=== PATIENT | female | born 1985 | race Caucasian/White ===

== ENCOUNTER 2018-06-09 16:58 | Outpatient (CLI) | payer BC ==
--- NOTE | 2018-06-10 14:00 | Ultrasound Report ---
Reason: INFERTILITY INVESTIGATION AND TESTING Procedure Date: 06/09/2018 Accession Number: [id number] / [id number] Procedure: US - Pelvic w/Transvaginal CPT Code: FULL RESULT: EXAM: PELVIC ULTRASOUND EXAM DATE: 06/09/2018 05:24 PM. CLINICAL HISTORY: INFERTILITY INVESTIGATION AND TESTING. COMPARISON: None. TECHNIQUE: Realtime transabdominal pelvic scan performed to identify the uterus and adnexa and as an overview of other pelvic structures, followed by transvaginal scan to provide greater detail of the uterus and adnexa, with static image documentation. FINDINGS: Uterus: 7.9 x 3 x 5.1 cm, volume 63.2 cc. Retroverted and retroflexed position. Normal overall size and echotexture. Masses: None. Endometrium: 5 mm. Normal. Cervix: Unremarkable. Right Ovary: 2.9 x 1.7 x 1.9 cm, volume 5.3 cc. Normal echotexture and blood flow. Normal follicles are noted. Left Ovary: 2.9 x 1.9 x 2.8 cm, volume 8.3 cc. Normal echotexture and blood flow. Cluster of anechoic cysts are noted in left ovary measuring 0.7 x 0.6 x 0.6 cm in aggregate. Volume measured 0.1 cc. Negative vascularity. Free Fluid: None. Other: None. IMPRESSION: 1. No endometrial mass or polyp. 2. No uterine fibroids. 3. Cluster of anechoic left ovarian cyst measuring up to 0.7 cm in aggregate. Normal right-sided follicles. Otherwise, both ovaries and adnexa are normal. RADIA
== END 2018-06-09 16:59 | disposition home or self-care (01) ==
LOC: DI 16:58
PROVIDERS: ATTEND Nurse Practitioner Obstetrics & Gynecology
DX: Z31.41 Encounter for fertility testing (principal); N83.202 Unspecified ovarian cyst, left side
CPT/HCPCS: 76830; 76856

== ENCOUNTER 2018-07-31 10:54 | Outpatient (CLI) | payer BC ==
[2018-07-31] MEDS ORDERED: IOTHALAMATE MEGLUMINE 50 ML VIAL ONE (11:10)
[2018-07-31] MEDS ORDERED: IOTHALAMATE MEGLUMINE 50 ML VIAL IVP ONE ×2 (12:36)
--- NOTE | 2018-07-31 13:39 | XRAY Report ---
Reason: INFERTILITY Procedure Date: 07/31/2018 Accession Number: [id number] / [id number] Procedure: FL - Hysterosalpingogram CPT Code: FULL RESULT: EXAM: HYSTEROSALPINGOGRAM EXAM DATE: 07/31/2018 11:40 AM. CLINICAL HISTORY: INFERTILITY. COMPARISONS: 06/09/2018 pelvic ultrasound. TECHNIQUE: Patient was placed in the lithotomy position. A speculum was utilized to visualize the cervix. The cervical os was cleansed with Betadine swabs and a hysterosalpingography catheter inserted without complication through the cervical canal and the balloon inflated. Under fluoroscopic observation, the endometrial canal was filled with sterile contrast. Multiple spot views were saved for review. Fluoroscopy Time: 2 minutes 19 seconds. Number of fluoroscopy images: 15. FINDINGS: Uterus: The endometrial canal is well distended with contrast and has a smooth normal contour. Tubes: The RIGHT fallopian tube fills with contrast, is normal in caliber with smooth contour. No obstruction evident. Contrast spills into the peritoneum. The LEFT fallopian tube is seen in its proximal portion. The distal left fallopian tube is not opacified and no free spill of contrast is appreciated. Other: None. IMPRESSION: 1. Patent right fallopian tube with documented free spill of contrast. 2. Unremarkable appearing uterus. 3. The left fallopian tube is opacified proximally but no free spill of contrast is seen/documented. RADIA
== END 2018-07-31 10:55 | disposition home or self-care (01) ==
LOC: DI 10:54
PROVIDERS: ATTEND Registered Nurse
DX: Z31.41 Encounter for fertility testing (principal)
CPT/HCPCS: 58340; 74740; Q9961

== ENCOUNTER 2019-03-25 07:45 | Outpatient (CLI) | payer BC | END 2019-03-25 07:46 | disposition home or self-care (01) | LOC: LAB 07:45 | PROVIDERS: ATTEND Obstetrics & Gynecology Reproductive Endocrinology | DX: Z32.00 Encounter for pregnancy test, result unknown (principal) | CPT/HCPCS: 36415; 84702 ==

== ENCOUNTER 2019-04-15 06:49 | Outpatient (CLI) | payer BC ==
--- NOTE | 2019-04-15 08:22 | Ultrasound Report ---
Reason: POSITIVE TEST Procedure Date: 04/15/2019 Accession Number: [id number] / [id number] Procedure: US - OB First Trimester CPT Code: Final Report FULL RESULT: EXAM: FIRST TRIMESTER OBSTETRIC ULTRASOUND (Less than 11 weeks) EXAM DATE: 04/15/2019 06:57 AM. CLINICAL HISTORY: Positive test. LMP: 02/19/2019. COMPARISONS: None. TECHNIQUE: Transabdominal and transvaginal ultrasound examination with static image documentation. CLINICAL DATES: EGA 7 weeks 6 days with TIMOTHY 11/26/2019 based on LMP. ASSESSMENT: Gestational Sac: Single intrauterine. Embryo: CRL (crown-rump length) 15.1 mm = 7 weeks 6 days with an TIMOTHY of 11/26/2019. Cardiac activity: 163 beats per minute. Yolk sac: 2.4 mm. Amniotic fluid: Not accurately assessed at this gestational age. Early placenta: Not visible at this gestational age. Other: No perigestational fluid collection demonstrated. MATERNAL STRUCTURES: Uterus: Anteverted. Unremarkable. Cervix: Closed. Right Ovary/Adnexa: The ovary measures 3.7 x 2.8 x 2.7 cm, volume 14.6 cc. Unremarkable. Left Ovary/Adnexa: The ovary measures 5.3 x 3.0 x 2.5 cm, volume 20.8 cc. Anechoic 2.4 x 2.2 x 1.9 cm and 2.1 x 1.6 x 2.2 cm left ovarian cysts are noted. No wall irregularities, mural nodules or thickened septations. Free Fluid: None. Other: None. IMPRESSION: 1. Single viable intrauterine at EGA 7 weeks 6 days with TIMOTHY 11/26/2019 based on crown-rump length, which is concordant with clinical dates. 2. Assigned dating is TIMOTHY 11/26/2019 based on LMP. MYRON
== END 2019-04-15 06:50 | disposition home or self-care (01) ==
LOC: DI 06:49
PROVIDERS: ATTEND Nurse Practitioner Obstetrics & Gynecology
DX: Z32.01 Encounter for pregnancy test, result positive (principal)
CPT/HCPCS: 76801; 76817

== ENCOUNTER 2019-04-26 07:00 | Outpatient (CLI) | payer BC ==
[2019-04-27 13:58] LABS: MUDS CUTOFF CONCENTRATIONS CUTOFF CONC BELOW:
[2019-04-27 14:03] LABS: BILIRUBIN,URINE NEGATIVE (NEGATIVE); GLUCOSE, URINE (UA) NEGATIVE (NEGATIVE); KETONES,URINE (UA) NEGATIVE (NEGATIVE); LEUKOCYTE ESTERASE, URINE NEGATIVE (NEGATIVE); NITRITE,URINE NEGATIVE (NEGATIVE); OCCULT BLOOD,URINE NEGATIVE (NEGATIVE); PROTEIN,URINE NEGATIVE (NEGATIVE); UROBILINOGEN,URINE 0.2 (NORMAL) E.U./dL (NORMAL)
[2019-04-27 14:05] LABS: CLARITY,URINE CLEAR (CLEAR)
[2019-04-27 14:12] LABS: AMPHETAMINE SCREEN,URINE NEGATIVE (NEGATIVE); BENZODIAZEPINES SCREEN, URINE NEGATIVE (NEGATIVE); COCAINE SCREEN URINE NEGATIVE (NEGATIVE); METHADONE SCREEN, URINE NEGATIVE (NEGATIVE); METHAMPHETAMINES SCREEN, URINE NEGATIVE (NEGATIVE); OPIATE SCREEN, URINE NEGATIVE (NEGATIVE); OXYCODONE SCREEN, URINE NEGATIVE (NEGATIVE); PROPOXYPHENE SCREEN, URINE NEGATIVE (NEGATIVE); TRICYCLIC ANTIDEPRESSANT,URINE NEGATIVE (NEGATIVE)
[2019-04-27 21:39] LABS: TRICHOMONAS VAGINALIS DNA NEGATIVE (NEGATIVE)
== END 2019-04-26 23:59 | disposition home or self-care (01) ==
LOC: LAB.R 07:00
PROVIDERS: ATTEND Nurse Practitioner Obstetrics & Gynecology
DX: Z34.90 Encounter for supervision of normal pregnancy, unspecified, unspecified trimester (principal)
CPT/HCPCS: 80306; 81001; 81003; 87086; 87491; 87591; 87661

== ENCOUNTER 2019-04-30 15:55 | Outpatient (CLI) | payer BC ==
[2019-04-30 16:17] LABS: BASOPHILS % (AUTO) 0.4 %; EOSINOPHILS # (AUTO) 0.2 10^3/uL (0.0-0.7); EOSINOPHILS % (AUTO) 1.4 %; HGB - HEMOGLOBIN 14.5 g/dL (12.0-16.0); LYMPHOCYTES # (AUTO) 2.2 10^3/uL (1.5-3.5); LYMPHOCYTES % (AUTO) 19.4 %; MEAN CORPUSCULAR HGB CONC 37.3 g/dL (32.0-36.0); MEAN CORPUSCULAR VOLUME 83.3 fL (81.0-99.0); MEAN PLATELET VOLUME 9.7 fL (7.9-10.8); MONOCYTES # (AUTO) 0.7 10^3/uL (0.0-1.0); MONOCYTES % (AUTO) 6.5 %; NEUTROPHILS % (AUTO) 71.9 %; PLT - PLATELET COUNT 302 10^3/uL (130-450); RED BLOOD COUNT 4.67 10^6/uL (4.20-5.40); RED CELL DISTRIBUTION WIDTH 12.1 % (12.0-15.0); WHITE BLOOD COUNT 11.1 x10^3/uL (4.8-10.8)
[2019-05-01 11:41] LABS: HEPATITIS B SURFACE ANTIGEN NON-REACTIVE (NON-REACTIVE); HEPATITIS C ANTIBODY NON-REACTIVE (NON-REACTIVE)
[2019-05-01 13:35] LABS: HIV AG/AB 4TH GEN NON-REACTIVE (NON-REACTIVE)
== END 2019-04-30 15:56 | disposition home or self-care (01) ==
LOC: LAB 15:55
PROVIDERS: ATTEND Nurse Practitioner Obstetrics & Gynecology
DX: Z34.90 Encounter for supervision of normal pregnancy, unspecified, unspecified trimester (principal)
CPT/HCPCS: 36415; 81599; 85025; 86592; 86762; 86803; 86850; 86900; 86901; 87340; 87389

== ENCOUNTER 2019-06-23 07:40 | Outpatient (CLI) | payer BC | END 2019-06-23 23:59 | disposition home or self-care (01) | LOC: LAB.WCP 07:40 | PROVIDERS: ATTEND Nurse Practitioner Obstetrics & Gynecology | DX: Z36.84 Encounter for antenatal screening for fetal lung maturity (principal) | CPT/HCPCS: 36415; 81511; 81599 ==

== ENCOUNTER 2019-07-02 08:15 | Outpatient (CLI) | payer BC ==
--- NOTE | 2019-07-04 02:55 | Ultrasound Report ---
Reason: Procedure Date: 07/02/2019 Accession Number: [id number] / [id number] Procedure: US - OB Detailed Eval CPT Code: Final Report FULL RESULT: EXAM: COMPLETE OBSTETRICAL ULTRASOUND EXAM DATE: 07/02/2019 10:04 AM. CLINICAL HISTORY: anatomic survey. COMPARISON: 04/15/2019. TECHNIQUE: Real-time sonographic evaluation of the fetus performed by the consumer credit counselor. Multiple vendor representatives static images were saved for review. DATING: Established EGA 19 weeks 0 days with TIMOTHY 11/26/2019 based on LMP and previous sonogram. EGA 18 weeks 6 days with TIMOTHY 11/27/2019 based on the current ultrasound. GENERAL EVALUATION Reza . Cardiac activity: 149 bpm. movement: Visualized. Presentation: Variable Placenta: Posterior to right position. The placenta is low lying, terminating 1.5 cm from the internal os. Umbilical cord: 3 vessel cord. Central placental cord origin. Amniotic fluid: Subjectively normal. MVP 4.6 cm. BIOMETRY Bi-Parietal Diameter (BPD): 4.3 cm, 19 weeks 0 days Head Circumference (HC): 15.9 cm, 18 weeks 5 days Abdominal Circumference (AC): 13.9 cm, 19 weeks 2 days Femur Length (FL): 3.0 cm, 19 weeks 1 day Estimated Weight: 279 g, 57th percentile for 19 weeks 0 days. ANATOMY The intracranial structures, profile, face/nose/lips, spine, stomach, abdominal wall and cord insertion, diaphragm, kidneys, bladder, and extremities were visualized and demonstrate no abnormality. Visualization of the cardiac structures, including four-chamber view and outflow tracts, is suboptimal. MATERNAL STRUCTURES Uterus: Unremarkable. Cervix: Long and closed. Transabdominal length 5.3 cm. Right ovary/adnexa: Unremarkable. Left ovary/adnexa: Unremarkable. Free fluid: None. IMPRESSION: 1. Reza live intrauterine with gestational age 19 weeks 0 days based on LMP. 2. Estimated weight is within expected limits for assigned dating. 3. Suboptimal visualization of the cardiac structures. Otherwise, normal anatomic survey. No anatomic abnormalities are detected at this time. RADIA
== END 2019-07-02 08:16 | disposition home or self-care (01) ==
LOC: DI 08:15
PROVIDERS: ATTEND Nurse Practitioner Obstetrics & Gynecology
DX: Z34.92 Encounter for supervision of normal pregnancy, unspecified, second trimester (principal); Z36.89 Encounter for other specified antenatal screening
CPT/HCPCS: 76811

== ENCOUNTER 2019-08-24 15:25 | Outpatient (CLI) | payer BC ==
[2019-08-24 19:58] LABS: HGB - HEMOGLOBIN 12.5 g/dL (12.0-16.0); MEAN CORPUSCULAR HGB CONC 35.1 g/dL (32.0-36.0); MEAN CORPUSCULAR VOLUME 85.6 fL (81.0-99.0); MEAN PLATELET VOLUME 10.8 fL (7.9-10.8); RED BLOOD COUNT 4.16 10^6/uL (4.20-5.40); RED CELL DISTRIBUTION WIDTH 13.1 % (12.0-15.0); WHITE BLOOD COUNT 11.4 x10^3/uL (4.8-10.8)
== END 2019-08-24 15:26 | disposition home or self-care (01) ==
LOC: LAB.S 15:25
PROVIDERS: ATTEND Advanced Practice Midwife
DX: Z34.90 Encounter for supervision of normal pregnancy, unspecified, unspecified trimester (principal)
CPT/HCPCS: 36415; 82950; 85027; 86850

== ENCOUNTER 2019-08-27 08:06 | Outpatient (CLI) | payer BC | END 2019-08-27 08:07 | disposition home or self-care (01) | LOC: LAB 08:06 | PROVIDERS: ATTEND Advanced Practice Midwife | DX: Z34.90 Encounter for supervision of normal pregnancy, unspecified, unspecified trimester (principal) | CPT/HCPCS: 36415; 82951; 82952 ==

== ENCOUNTER 2019-09-06 08:12 | Outpatient (CLI) | payer BC ==
--- NOTE | 2019-09-06 17:21 | Ultrasound Report ---
PROCEDURE: OB F/U or Repeat INDICATIONS: SUPERVISION OF NORMAL OUTSIDE/PRIOR DATING DATA: Last menstrual period (LMP): 02/19/2019. LMP-based estimated date of delivery (TIMOTHY): 11/26/2019. First dating scan (date and location): 04/15/2019. Estimated date of delivery (TIMOTHY) from first dating scan: 11/26/2019. TECHNIQUE: Real-time scanning was performed of the fetus, with image documentation and biometric measurements. COMPARISON: OB ultrasound 07/02/2019, 04/15/2019 FINDINGS: General: A single living intrauterine gestation is present. Presentation: Cephalic Placenta: Placental position is posterior, without previa. Placental edge measures 6.8 cm from the os. Amniotic fluid index: 11.4 cm, 16th percentile for gestational age. Largest pocket 3.3 cm heart rate: 139 beats per minute. Maternal cervical canal: 4.3 cm long; normal length is 2.5 cm or more. biometrics: Composite gestational age from initial scan: 28 weeks 3 days Other: 4 chambered heart as well as outflow tracts are within normal limits. IMPRESSION: 1. Single live intrauterine with normal visualized anatomy. Reviewed by: Felicity Ramirez MD on 09/06/2019 5:20 PM PDT Approved by: Felicity Ramirez MD on 09/06/2019 5:20 PM PDT Station ID: [id number]
== END 2019-09-06 08:13 | disposition home or self-care (01) ==
LOC: DI 08:12
PROVIDERS: ATTEND Advanced Practice Midwife
DX: Z34.90 Encounter for supervision of normal pregnancy, unspecified, unspecified trimester (principal)
CPT/HCPCS: 76816

== ENCOUNTER 2019-11-03 07:00 | Outpatient (CLI) | payer BC ==
[2019-11-03 16:26] LABS: TRICHOMONAS VAGINALIS DNA NEGATIVE (NEGATIVE)
== END 2019-11-03 23:59 | disposition home or self-care (01) ==
LOC: LAB.R 07:00
PROVIDERS: ATTEND Advanced Practice Midwife
DX: Z34.90 Encounter for supervision of normal pregnancy, unspecified, unspecified trimester (principal); Z36.85 Encounter for antenatal screening for Streptococcus B; Z11.3 Encounter for screening for infections with a predominantly sexual mode of transmission
CPT/HCPCS: 87491; 87591; 87661; 87797

== ENCOUNTER 2019-11-23 07:31 | Observation (INO) | payer BC ==
[2019-11-23] MEDS ORDERED: SODIUM CHLORIDE FLUSH 0.9% 10 ML SYRINGE IVP PRN (07:38)
[2019-11-23] MEDS ORDERED: miSOPROStoL 100 MCG TABLET BC ONE (08:00)
[2019-11-23] MEDS ORDERED: SODIUM CHLORIDE FLUSH 0.9% 10 ML SYRINGE IVP SCH (09:00)
[2019-11-23 09:44] LABS: BASOPHILS % (AUTO) 0.3 %; EOSINOPHILS # (AUTO) 0.1 10^3/uL (0.0-0.7); HGB - HEMOGLOBIN 14.6 g/dL (12.0-16.0); LYMPHOCYTES # (AUTO) 1.3 10^3/uL (1.5-3.5); LYMPHOCYTES % (AUTO) 13.9 %; MEAN CORPUSCULAR HEMOGLOBIN 30.9 pg (27.0-31.0); MEAN CORPUSCULAR HGB CONC 36.1 g/dL (32.0-36.0); MEAN CORPUSCULAR VOLUME 85.6 fL (81.0-99.0); MEAN PLATELET VOLUME 11.5 fL (7.9-10.8); MONOCYTES # (AUTO) 0.5 10^3/uL (0.0-1.0); MONOCYTES % (AUTO) 5.2 %; NEUTROPHILS # (AUTO) 7.3 10^3/uL (1.5-6.6); PLT - PLATELET COUNT 243 10^3/uL (130-450); RED BLOOD COUNT 4.72 10^6/uL (4.20-5.40); RED CELL DISTRIBUTION WIDTH 13.1 % (12.0-15.0); WHITE BLOOD COUNT 9.2 x10^3/uL (4.8-10.8)
[2019-11-23 12:00] VITALS: BP 122/78
--- NOTE | 2019-11-23 13:38 | PROVIDER PROGRESS NOTE ---
- HPI Chief Complaint: Other Current : Current EDU 11/26/19 Gestation 39 Weeks and 4 Days 1 Vital Signs Temperature 36.8 C 11/23/19 07:45 Heart Rate 80 11/23/19 07:45 Respiratory Rate 17 11/23/19 07:45 Blood Pressure 130/84 H 11/23/19 07:45 O2 Saturation 97 11/23/19 07:45 Temperature 36.9 C 11/23/19 11:41 Heart Rate 93 11/23/19 11:41 Respiratory Rate 18 11/23/19 11:41 Blood Pressure 122/78 11/23/19 11:41 O2 Saturation 100 11/23/19 11:41 - Procedures OB Procedure Performed: NST Diagnosis/Indication for NST: Other - Plan Plan: 34yo @ 39.4wks gestation presents to [facility] for pre-induction cervical ripening with misoprostol. She has been a patient of [facility] for the duration of her which has been complicated only by A1 Gestational Diabetes and patient has maintained tight glycemic control throughout. Upon arrival SVE was deferred as patient not experiencing uterine contractions. She denies vaginal bleeding or leakage of fluid. She reports +FM. O: FHR baseline 130s, moderate variability, + accels, no decels BP 122/78, HR 93, RR 18, T 36.9 50mcg BC misoprostol x 1 A: 34yo @ 39.4wks gestation A1GDM FHR Category I GBS negative P: Pt released home with precautions. Reviewed labor precautions and when to present. Pt scheduled to present to [facility] for induction of labor at 0730 tomorrow morning 11/24/2019 or sooner PRN. Pt and partner at the bedside both verbalized understanding and agrees to above plan. She denies further questions or concerns at this time.
== END 2019-11-23 12:20 | disposition home or self-care (01) ==
LOC: WFO 07:31 → FBP 07:36 → WFO 07:37 → FBP 07:37 → WFO 07:38 → FBP 07:38
PROVIDERS: ADMIT Nurse Practitioner Obstetrics & Gynecology; ATTEND Nurse Practitioner Obstetrics & Gynecology
DX: O24.419 Gestational diabetes mellitus in pregnancy, unspecified control (principal); Z3A.39 39 weeks gestation of pregnancy
CPT/HCPCS: 85025; A9270; G0378

== ENCOUNTER 2019-11-24 07:23 | Inpatient (IN) | payer BC ==
--- NOTE | 2019-11-24 07:46 | HISTORY & PHYSICAL EXAMINATION ---
Admit History - Visit Reason Visit Reason: Other - : 1 Parity: 0 Premature: 0 Ectopic: 0 : 0 Care: positive: [facility] Risk/History: positive: Gestational diabetes Complications This : positive: Gestational diabetes Smoking Status: Former smoker - Mother's Labs Mother's Blood Type: positive: B Mother's RH: positive: Positive GBS: positive: Group B Step Negative Rubella Status: positive: Equivocal Meds/Allgy - Allergies Allergies/Adverse Reactions: Allergies Allergy/AdvReac Type Severity Reaction Status Date / Time No Known Drug Allergies Allergy Verified 11/23/19 07:50 Review of Systems - Constitutional Constitutional: denies: Fatigue - Eyes Eyes: denies: Blurred vision, Spots in vision, Dipolpia - Cardiovascular Cariovascular: denies: Chest pain, Edema - Respiratory Respiratory: denies: Cough, SOB at rest - Gastrointestinal Gastrointestinal: denies: Constipation, Diarrhea - Integumentary Integumentary: denies: Rash, Pruritis - Neurological Neurological: denies: Headache Physical - Abdominal Exam Contraction Frequency (min/apart): intermittent Contraction Intensity: positive: Mild Uterine Resting Tone: positive: Soft - Monitoring Strip Review: positive: Category I - Presentation Presentation: positive: Vertex - Vaginal Exam Membranes: positive: Membranes intact - Speculum Exam Speculum Exam Performed: positive: No Plan for Labor - Plan For Labor I expect patient to be DC'd or transferred within 96 hours.: Yes Plan for Labor: HPI: This 34yo @ 39.5wks gestation presents to [facility] for induction of labor. She has been a patient of [facility] through the duration of her which has been complicated only by A1 gestational diabetes. She has maintained tight glycemic control. In addition, her 20 week ultrasound revealed a low lying placenta which was reevaluated 4 weeks after initial scan and had resolved. Most recent U/S reported posterior placenta, 6.8cm from internal cervical os. She presented yesterday (11/23/2019) for outpatient cervical ripening and received 1 dose of 50mcg BC misoprostol. She was monitored by external tocometry x 4 hours and was discharged home with precautions. Upon arrival today SVE was deferred secondary to absence of significant uterine contractions. She denies vaginal bleeding or leakage of fluid and reports +FM. Reports contractions last night were more noticeable but she was able to get a good night's sleep despite the cramping. She will be placed on observation status on [facility] for pre-induction cervical ripening with misoprostol.Partner s upportive at the bedside. OB Hx: G1: current Dating criteria: LMP: 02/19/2019 Initial ultrasound @ 7.6wks c/w LMP dating Serial exams: agree Medications: Allergies: NKDA PMHx: infertility-unknown etiology; HSG 08/01/2019 WNL and pt shortly following Surgical Hx: none Social Hx: Former smoker, no ETOH or IVDA. Shubham. Family Hx: Liver cancer - father; Aneurysm - father; Anx iety/depression/alcoholism - MGF Course: Initial U/S: @ 7.6wks gestation c/w LMP dating. B pos/Rubella - EQUIVOCAL = MMR Genetic testing: Quad-neg FAS: 07/02/2019 19.0wks c/w TIMOTHY. Placenta low lying. Posterior. 1.5cm from os. 3VC. ZENOBIA wnl. 149bpm. efw 57%. f/u US: wnl. Placenta posterior- 6.8cm from os. ZENOBIA 16%. Glucola 1hr 166; 3hr: 81/206/178/95 failed TDAP 09/01/2019 GBS & GC/CT at 36.5 weeks: neg/neg HSV: denies self and partner Breast pump Rx: given 07/07/2019 MOD: . Wait and see. : Shubham. BABY- girl- Jael [id number]-Mida controlled pp contraception: POPs PAP:2017-[id number]. Per patient. due 2021 Physical Exam: Normocephalic, atraumatic Heart RRR w/o M/G/R Lungs CTAB Abdomen gravid soft and nontender. EFW 3200g FHR baseline 130s, moderate variability, + accels, no decels Intermittent, mild contractions with soft resting tone SVE deferred Bilateral LE's no edema Assessment: 34yo @ 39.5wks gestation by 7wk LMP c/w initial ultrasound [id number] controlled Pre-induction cervical ripening with misoprostol FHR Category I GBS neg Plan: Pre-induction cervical ripening with misoprostol 50mcg BC q [address] in observation until SROM, active labor, epidural placement, initiation of pitocin Continuous monitoring Anticipate Reviewed plan of care with pt, partner, and labor RN at the bedside. All verbalized understanding and agree to above plan. They deny further questions or concerns at this time.
[2019-11-24] MEDS ORDERED: CARBOPROST TROMETHAMINE 250 MCG/ML AMP IM PRN (07:49)
[2019-11-24] MEDS ORDERED: SODIUM CHLORIDE FLUSH 0.9% 10 ML SYRINGE IVP PRN (07:49)
[2019-11-24] MEDS ORDERED: ONDANSETRON 4 MG/2 ML VIAL IVP PRN (07:49)
[2019-11-24] MEDS ORDERED: OXYTOCIN/SODIUM CHLORIDE 500 ML IV PRN (07:49)
[2019-11-24] MEDS ORDERED: TRANEXAMIC ACID 1,000 MG in SODIUM CHLORIDE 0.9% 100ML 100 ML IV PRN (07:49)
[2019-11-24] MEDS ORDERED: METHYLERGONOVINE 0.2 MG/ML VIAL IM PRN (07:49)
[2019-11-24] MEDS ORDERED: OXYTOCIN 10 UNIT/ML VIAL IM PRN (07:49)
[2019-11-24] MEDS ORDERED: LIDOCAINE-MPF 1% 30 ML VIAL ID PRN (07:49)
[2019-11-24] MEDS ORDERED: miSOPROStoL 200 MCG TABLET BC PRN (07:49)
[2019-11-24] MEDS: SODIUM CHLORIDE FLUSH 0.9% 10 ML SYRINGE IVP SCH ×2 (08:00→17:30)
[2019-11-24] MEDS: miSOPROStoL 100 MCG TABLET BC SCH ×3 (08:23→17:08)
--- NOTE | 2019-11-24 17:24 | PROVIDER PROGRESS NOTE ---
Labor Progress Note - Uterine Monitoring Uterine Monitoring Mode: positive: External toco Contraction Frequency (min/apart): 2-4 Contraction Intensity: positive: Mild Uterine Resting Tone: positive: Soft - Monitoring Monitor Mode: positive: External ultrasound Heart Rate Baseline: 135 Heart Rate Variability: positive: Moderate (6-25 bmp) Accelerations: positive: Present, 15x15 Decelerations: positive: None Strip Review: positive: Category I - Labor Progress Note Labor Progress Note/Additional Text: S: Sitting up comfortably in bed eating dinner with partner supportive at the bedside. She reports slightly increased intensity of contractions but overall coping well and is able to easily talk through contractions. Denies GIRALDO, visual disturbances, RUQ or epigastic pain. Reports +FM. Elects to take 1 final dose of misoprostol and then rest tonight. Desires ambien for sleep aid tonight. O: BP 130s/80s-90s - asymptomatic FHR Baseline 140s, moderate variability, + accels, no decels Contractions palpate mild every 2-4 minutes with soft resting tone SVE deferred A: 34yo @ 39.5wks gestation A1 Gestational diabetes GBS neg FHR Category I P: Stop BC misoprostol over night. Ambien 5mg x 1 tonight to promote rest. SVE in the morning - cervical ripening balloon vs pitocin NST q 4 hours with vital signs throughout the night. 2 hr pp blood glucose with AM fasting Pt, partner, and labor RN at the bedside verbalized understanding and agree to above plan. They deny further questions or concerns at this time.
[2019-11-24] MEDS: LACTATED RINGERS 1,000 ML IV SCH ×2 (19:12→19:40)
[2019-11-24] MEDS ORDERED: ZOLPIDEM 5 MG TABLET PO PRN (21:30)
--- NOTE | 2019-11-25 07:42 | PROVIDER PROGRESS NOTE ---
Labor Progress Note - Uterine Monitoring Uterine Monitoring Mode: positive: External toco Contraction Frequency (min/apart): 5-6 Contraction Intensity: positive: Mild to moderate Uterine Resting Tone: positive: Soft - Monitoring Monitor Mode: positive: External ultrasound Heart Rate Baseline: 135 Heart Rate Variability: positive: Moderate (6-25 bmp) Accelerations: positive: Present, 15x15 Decelerations: positive: None Strip Review: positive: Category I - Vaginal Exam Dilation (in cm): 1-2 Effacement (%): 50 Station: -3 Cervical Position: Posterior - Labor Progress Note Labor Progress Note/Additional Text: S: Pt states she slept well throughout the night. She did take the ambien and felt it helped. [place] slightly increased intensity of contractions intermittently throughout the night. Difficult SVE secondary to pt discomfort. Pt desires medication for pain relief with placement of cervical ripening balloon. O: BP 120/77; FHR baseline 135, moderate variability, + accels, no decels SVE 1-2/50/-3, posterior, medium consistency Membranes intact Procedure: Pt premedicated with 50mcg Fentanyl IVP [place] cervical ripening balloon easily passed through cervical os Normal saline 60mL uterine balloon and 60mL vaginal balloon Pt tolerated procedure well. FHR remain Category I A: 34yo @ 30.6wks gestation A1 Gestational diabetes- well controlled GBS neg FHR Category I Induction of labor s/p 3 doses of 50mcg BC misoprostol 11/24/2019 followed by rest period. P: Resume 50mcg BC misoprostol q 4 hours for continued cervical ripening. Continuous monitoring Repeat SVE when cervical ripening balloon is expelled. Reviewed plan of care with pt, , and labor RN at the bedside who are all in agreement and deny further questions or concerns at this time.
[2019-11-25] MEDS: miSOPROStoL 100 MCG TABLET BC SCH ×2 (07:49→11:52)
[2019-11-25] MEDS ORDERED: fentaNYL 100 MCG/2 ML VIAL IVP ONE ×2 (08:00→19:30)
[2019-11-25] MEDS ORDERED: OXYTOCIN/SODIUM CHLORIDE 500 ML IV SCH (19:10)
--- NOTE | 2019-11-25 19:27 | PROVIDER PROGRESS NOTE ---
Labor Progress Note - Uterine Monitoring Uterine Monitoring Mode: positive: External toco Contraction Frequency (min/apart): 6 Contraction Intensity: positive: Moderate Uterine Resting Tone: positive: Soft - Monitoring Monitor Mode: positive: External ultrasound Heart Rate Baseline: 145 Heart Rate Variability: positive: Moderate (6-25 bmp) Accelerations: positive: Present, 15x15 Decelerations: positive: None Strip Review: positive: Category I - Vaginal Exam Dilation (in cm): 4 Effacement (%): 50 Station: -3 Cervical Position: Posterior - Labor Progress Note Labor Progress Note/Additional Text: S: Feeling more intense contractions. Desires to discuss pain management options. Reviewed resting throughout the night with ambien vs initiating pitocin and she and her partner discussed and decide to begin pitocin induction of labor. Partner Shubham supportive at the bedside. O: FHR baseline 140s, moderate variability, + accels, no decels Contractions palpate moderate every 6 minutes with soft resting tone SVE 4/50/-3, intact membranes Cervical ripening balloon removed - pt tolerated removal well A: 34yo @ 39.6wks gestation A1 Gestational Diabetes FHR Category I GBS neg S/p 6 total doses of 50 mcg BC misoprostol P: Initiate pitocin with titration per protocol Continuous monitoring Continue monitoring BG 2 hr pp Epidural per maternal request. Reviewed plan of care with pt, partner, and labor RN at the bedside who verbalized understanding and agree to above plan. They deny questions or concerns at this time.
[2019-11-25] MEDS ORDERED: ROPIVACAINE 0.2% 200 MG/100 ML BAG EP ONE (21:32)
[2019-11-25] MEDS ORDERED: diphenhydrAMINE INJ 50 MG/ML VIAL IVP PRN (21:53)
[2019-11-25] MEDS ORDERED: ONDANSETRON 4 MG/2 ML VIAL IVP PRN (21:53)
[2019-11-25] MEDS ORDERED: NALOXONE 0.4 MG/ML VIAL IVP PRN (21:53)
[2019-11-25] MEDS ORDERED: ROPIVACAINE 0.2% 200 MG/100 ML BAG EP PRN (21:53)
[2019-11-25] MEDS ORDERED: ePHEDrine 50 MG/ML VIAL IVP PRN (21:53)
[2019-11-25] MEDS ORDERED: NALBUPHINE 10 MG/ML AMP IVP PRN (21:53)
[2019-11-25] MEDS ORDERED: METOCLOPRAMIDE 10 MG/2 ML VIAL IVP PRN (21:53)
--- NOTE | 2019-11-25 21:57 | ANESTHESIA ---
Pre-Anesthesia VS, & Labs - Diagnosis active labor - Procedure labor epidural Vital Signs: Temp Pulse Resp BP Pulse Ox 36.8 C 88 17 134/87 H 98 11/24/19 07:39 11/24/19 08:00 11/24/19 08:00 11/24/19 08:00 11/24/19 08:00 Height: 5 ft 6 in Weight (kg): 83.461 kg Body Mass Index: 29.7 BMI Classification: Overweight - NPO >8 hours - Is Patient ?: Yes - Lab Results Current Lab Results: Laboratory Tests 11/25/19 14:28: POC Whole Bld Glucose 115 H 11/25/19 09:20: POC Whole Bld Glucose 164 H 11/25/19 05:47: POC Whole Bld Glucose 95 11/24/19 18:51: POC Whole Bld Glucose 111 H Lab results reviewed: Yes Home Medications and Allergies Active Medications Carboprost Tromethamine (Hemabate) 250 mcg IM Q15M PRN PRN Reason: Step 4: Hemorrhage protocol Stop: 11/29/19 07:50 Oxytocin/Sodium Chloride (Pitocin/Sodium Chloride) 500 mls @ 999 mls/hr IV PRN PRN; Protocol PRN Reason: POST- HEMORR PREVENTION Stop: 11/29/19 07:50 Tranexamic Acid 1,000 mg/ (Sodium Chloride) 110 mls @ 660 mls/hr IV .ONCE PRN PRN Reason: EBL >1200mL and within 3hr Stop: 11/29/19 07:50 Lactated Ringer's (Lr) 1,000 mls @ 100 mls/hr IV .Q10H MARILYN Last Admin: 11/24/19 19:40 Dose: 100 mls/hr Documented by: Oxytocin/Sodium Chloride (Pitocin/Sodium Chloride) 500 mls @ 1 mls/hr IV TITR S CH; Protocol Last Admin: 11/25/19 19:13 Dose: 1 milliunit/min, 1 mls/hr Documented by: Lidocaine HCl (Xylocaine-Mpf 1% Vial) 30 ml ID .ONCE PRN PRN Reason: PERINEAL REPAIR Stop: 11/29/19 07:50 Methylergonovine Maleate (Methergine Inj) 0.2 mg IM .ONCE PRN PRN Reason: Step 2: Hemorrhage protocol Stop: 11/29/19 07:50 Misoprostol (Cytotec) 800 mcg BC .ONCE PRN PRN Reason: Step 3: Hemorrhage protocol Stop: 11/29/19 07:50 Ondansetron HCl (Zofran Inj) 4 mg IVP Q4HR PRN PRN Reason: Nausea / Vomiting Oxytocin (Pitocin) 10 unit IM .ONCE PRN PRN Reason: Step one: If no IV access Stop: 11/29/19 07:50 Sodium Chloride (Normal Saline Flush 0.9%) 10 ml IVP 0100,0900,1700 MARILYN Last Admin: 11/24/19 17:30 Dose: 10 ml Documented by: Sodium Chloride (Normal Saline Flush 0.9%) 10 ml IVP PRN PRN PRN Reason: NEEDED PER PROVIDER ORDERS Zolpidem Tartrate (Ambien) 5 mg PO QPM PRN PRN Reason: Insomnia Last Admin: 11/24/19 20:43 Dose: 5 mg Documented by: Allergies/Adverse Reactions: Allergies Allergy/AdvReac Type Severity Reaction Status Date / Time No Known Drug Allergies Allergy Verified 11/23/19 07:50 Anes History & Medical History - Anesthetic History Anesthesia Complications: reports: No previous complications - Medical History Cardiovascular: reports: None Pulmonary: reports: None Smoking Status: Former smoker - Obstetrical History : 1 Parity: 0 Events: positive: Gestational diabetes Complications: positive: Gestational diabetes Exam General: Alert, Oriented x3 Dental: WNL Respiratory: Lungs clear Cardiovascular: Regular rate Plan Anesthesia Type: Epidural Consent for Procedure(s) Verified and Reviewed: Yes Code Status: Attempt Resuscitation ASA classification: 2-Mild systemic disease Is this case an emergency?: No
[2019-11-25] MEDS ORDERED: WITCH HAZEL/GLYCERIN 1 PAD TOP PRN (23:39)
[2019-11-25] MEDS ORDERED: HYDROCORTISONE 1% CREAM 28 GM TUBE PR PRN (23:39)
--- NOTE | 2019-11-26 00:01 | DELIVERY NOTE ---
Delivery Note - Labor Labor: positive: Induced by oxytocin - Infant Delivery Method Delivery Method: positive: Spontaneous vaginal delivery - Cervical Ripening Method Cervical Ripening Method: positive: Balloon device, Misoprostil - Presentation Presentation: positive: Vertex, HIGINIO - left occiput anterior - Nuchal Cord Nuchal Cord: positive: None - Amniotic Fluid Description Amniotic Fluid Description: positive: Clear - Episiotomy Type Episiotomy Type: positive: None - Laceration Laceration: positive: 1st degree, 2nd degree, Labial, Perineal - Suture Suture Type: positive: Vicryl Suture Size: positive: 2-0, 3-0, 4-0 - Delivery Outcome Delivery Outcome: positive: Livebirth - May: positive: Placed in direct skin contact with mother, Stimulated, Warmed, [place] used May sex: positive: Female - Cord Cord: positive: 3 vessels - Placenta Placenta: positive: Intact, Spontaneous - Estimated Blood Loss Estimated Blood Loss (in cc): 350 - Post Delivery Events Post Delivery Events: positive: No post delivery events - Delivery Comments (Free Text/Narrative) Delivery Comments (Free Text/Narrative): Labor: This 34yo @ 39.6wks gestation by first trimester ultrasound presented on 11/23/2019 for pre-induction cervical ripening with misoprostol. She received 1 dose of 50mcg BC misoprostol and was continuously monitored via tocometry x 4 hours and then discharged home with precautions. She returned at 0730 on 11/24/2019 for induction of labor secondary to A1 Gestational diabetes for which she maintained tight glycemic control through the duration of her . She received 6 total doses of 50mcg BC misoprostol in addition to placement of cervical ripening balloon for effective cervical ripening. Pitocin was initiated at approximately 1900 on 11/25/2019 and titrated per protocol for a max infusion rate of 2mU/mL. FHR pattern demonstrated Category I pattern throughout labor. SROM occurred at 2057 and was noted to be a moderate amount of clear fluid. Epidural placed per maternal request. Pt progressed precipitously to c/c/+1 and onset of pushing at 2210. : Normal of viable female on 11/25/2019 @ 2249. [place] cord over left shoulder. Left compound hand. The was placed on maternal abdomen, stimulated, dried, and placed skin to skin. 's 9/9 at 1 and 5 min respectively. The umbilical cord was allowed to stop pulsating at which time it was doubly clamped by CNM and cut by FOB. Pitocin administered via IV for hemostasis. Cord blood was obtained. 3VC. Placenta delivered spontaneously and intact at 2253. EBL 350mL. Fourth stage: Uterine fundus firm and there is no excessive bleeding. The per ineum, vagina, and cervix were inspected and found to have 2nd degree perineal laceration which was repaired using 2-[address]-1 needle, 1st degree right labial laceration repaired using 3-[address]-1 needle. All lacerations were repaired in standard fashion and under sterile conditions. A 1st degree left labial laceration was hemostatic and secondarily left unrepaired. Vaginal and rectal examination following repair was done. Tissues well approximated. An in and out catheter was inserted to empty pt bladder. initiated. Family bonding well.
[2019-11-26] MEDS: ACETAMINOPHEN 500 MG TABLET PO SCH ×3 (03:54→22:57)
[2019-11-26] MEDS: IBUPROFEN 800 MG TABLET PO SCH ×4 (03:54→22:58)
--- NOTE | 2019-11-26 07:26 | PROVIDER PROGRESS NOTE ---
Subjective - Subjective Subjective: S: Reports she was able to sleep a little through the night. Bonding well with baby. without difficulty. Bleeding decreased and is light. Pain well controlled with oral medications. supportive at the bedside. O: BP 129/89, RR 16, HR 86 Heart RRR w/o M/G/R, lungs CTAB, abdomen soft and nontender with fundus firm at U. Light lochia rubra. Perineum intact with mild edema. Bilateral LE's no edema. A: 34yo -->P1 PPD#1 s/p TSVD viable female infant A1GDM 2nd Degree perineal laceration - intact Rubella equivocal P: Continue routine pp care and medications. MMR vaccine today. Evaluate for discharge home tomorrow. Pt verbalized understanding and denies questions or concerns at this time. Objective - Vital Signs/Intake & Output Vital Signs: Vital Signs x48h Temp 11/26/19 04:00 36.9 C Intake & Output: Intake & Output 11/23/19 11/24/19 11/25/19 11/26/19 23:59 23:59 23:59 23:59 Intake Total 500 700 Balance 500 700 - Lab Results Other Labs: Lab Results x24hrs 11/25/19 11/25/19 Range/Units 14:28 : POC Whole Bld Glucose 115 H 164 H (70 - 100) mg/dL
[2019-11-26] MEDS: DOCUSATE SODIUM 100 MG CAPSULE PO SCH (08:27)
[2019-11-26] MEDS ORDERED: MEASLES,MUMPS & RUBELLA VACC 0.5 ML VIAL SUBQ ONE (12:00)
[2019-11-27] MEDS: ACETAMINOPHEN 500 MG TABLET PO SCH (07:57)
[2019-11-27] MEDS: DOCUSATE SODIUM 100 MG CAPSULE PO SCH (07:58)
[2019-11-27] MEDS: IBUPROFEN 800 MG TABLET PO SCH (07:58)
--- NOTE | 2019-11-27 08:31 | PROVIDER PROGRESS NOTE ---
Subjective - Subjective Subjective: S: Bonding well with baby. without difficulty. Pain well controlled with oral medications. Bleeding decreased and is light. Partner supportive at the bedside. Episode of tachycardia yesterday afternoon which resolved with increased oral hydration. Pt remained asymptomatic. She currently denies GIRALDO, dizziness, light headedness, or visual disturbances. Glad to be able to go home today. O: BP 106/61, HR 91, T 36.6, RR 16 Heart RRR w/o M/G/R, lungs CTAB, Abdomen soft and nontender with fundus firm at U-1. Bilateral LE's no edema. Perineum intact. Light lochia rubra. A: 34yo -->P1 PPD#1 s/p TSVD viable female infant 2nd Degree perineal laceration -intact P: Reviewed pp self care and warning s/sx and when to present. Continue PNV while Advised ibuprofen and tylenol OTC as needed for pain management. Recommended Colase OTC PRN constipation. F/u in 1 week for support visit PRN, 3 weeks for routine pp visit and in 6 weeks for routine pp visit or sooner PRN. Pt and partner at the bedside verbalized understanding and agree to above plan. They deny further questions or concerns at this time. Objective - Vital Signs/Intake & Output Vital Signs: Vital Signs x48h Temp Pulse Resp BP Pulse Ox 11/27/19 08:00 36.6 C 89 16 139/96 H 100 Intake & Output: Intake & Output 11/24/19 11/25/19 11/26/19 11/27/19 23:59 23:59 23:59 23:59 Intake Total 500 700 Balance 500 700
--- NOTE | 2019-11-27 08:32 | Discharge Plan ---
Discharge Plan Problem Reviewed?: Yes Disposition: Home, Self Care Condition: Good Diet: Regular Activity Restrictions: No Restrictions Shower Restrictions: No Weight Bearing: Full Weight No Smoking: If you smoke, Please STOP! Call for help. Follow-up with: Becca York CNM, ARNP [Provider Admit Priv/Credential] -
[2019-11-27 09:28] VITALS: BP 130/79
[2019-11-27] MEDS ORDERED: MEASLES,MUMPS & RUBELLA VACC 0.5 ML VIAL SUBQ ONE (14:00)
--- NOTE | 2019-11-27 14:41 | Labor Flowsheet ---
Labor Flowsheet Datetime Report Generated by CPN: 11/27/2019 14:41 Datetime: 11/27/2019 12:06 VITAL SIGNS NBP Sys/Candice/Mean (mmHg): 140 : 97 : 105 Pulse: 94 Datetime: 11/27/2019 08:10 SpO2 (%): 100 Datetime: 11/26/2019 02:30 Respirations: 18 Datetime: 11/26/2019 00:46 Stage of : Recovery Pain Assessment Comments: Pt is comfortable/ice and TUCKS applied Datetime: 11/26/2019 00:15 Pain Location: Other Datetime: 11/25/2019 23:59 Membranes Ruptured Date/Time: 11/25/2019 20:58 Datetime: 11/25/2019 23:16 LaborFlag: Labor Datetime: 11/25/2019 22:49 Temperature (C): 36.7 UTERINE ACTIVITY Monitor Mode: External Monitor Interventions for UA: [place] Adjusted Contraction Comments: [place] off-pt feeling cntxs pushing well ASSESSMENT A Monitor Mode: External US Monitor Interventions for FHR: Ultrasound Adjusted FHR Baseline Rate : 140 Accelerations: 15X15 Decelerations: Variable; Prolonged Category: Category II Comments: pushing well towards Datetime: 11/25/2019 22:19 Variability: Moderate 6-25 bpm Datetime: 11/25/2019 22:10 VAGINAL EXAM Dilatation (cm): 10.0 Effacement (%): 100 Station: 1 Exam by: Traci York CNM Vaginal Exam Comments: Lai York CNM reducing lip to C Provider Reviewed Strip: Yes COMMUNICATION Communication: Provider at Bedside Notification Reason: Other Communication Comments: SVE/ C and pushing Datetime: 11/25/2019 22:00 Frequency (min): 2-4 Quality: Strong Duration (sec): 50-70 Pattern: Normal: <= 5 Contractions in 10 Minutes Resting Tone (Palpate): Relaxed Pitocin Checklist: At Least 1 Acceleration of 15 bpm x 15 Seconds in 30 Minutes or Adequate Variabi lity; No More than 1 Late Deceleration Occurred in Past 30 Minutes; No More than 2 Variable Decelerat ions > 60 Seconds in Duration and decreasing >60 bpm in 30 minutes; No More than 5 Uterine Contractio ns in 10 Minutes for any 20 Minute Interval; Uterus Palpates Soft between Contractions; IUPC Resting Tone less than 25 mmHg FHR Baseline Changes: No Baseline Change Oxygen Method: Room Air Datetime: 11/25/2019 21:53 Vaginal Bleeding: None Datetime: 11/25/2019 21:34 Epidural Positioning: Sitting Epidural Procedure: Test Dose Datetime: 11/25/2019 21:25 ANESTHESIA Anesthesia Plans: Epidural Anesthesia Comments: anesthesia here in the room Datetime: 11/25/2019 21:14 PAIN Pain Scale: 9 Pain Presence: Intermittent Pain Type: Cramping Pain Goal: 1 Pain Coping: Requesting Pain Medication or Epidural Datetime: 11/25/2019 21:13 PATIENT CARE IV/Blood Work: IV Bolus Started Patient Position/Activity: Birthing Ball Patient Care Comments: Bolus startin in prep for Epidural placement Datetime: 11/25/2019 21:01 Pain Relief Measures: Comfort Measures Comfort Measures: Anesthesia Notified Datetime: 11/25/2019 20:56 Membranes Rupture Method: Spontaneous Amniotic Fluid Color: Bloody Amniotic Fluid Amount: Small Amniotic Fluid Odor: Normal Datetime: 11/25/2019 20:16 MEDICATIONS Pitocin (milliunits): Increased to @ 2 m/U Datetime: 11/25/2019 19:51 MATERNAL ASSESSMENT Level of Consciousness: Alert DTR's/Clonus: No Clonus Headache: Denies Nausea/Vomiting: Denies Datetime: 11/25/2019 19:30 Temperature Route: Oral Bedside Blood Glucose: 109 Datetime: 11/25/2019 19:14 TEACHING Instructional Method: Verbal Plan of Care: Plan of Care Discussed; Vaginal Delivery; Labor Unit Routine: Call Foster; Monitoring; IV Pumps Labor/Induction: Labor Stages Pain Management: Comfort Measures Datetime: 11/25/2019 18:42 Cervix, Consistency: Moderate Cervix, Position: Posterior Datetime: 11/25/2019 16:04 Medication Comments: Holding Miso per CNM order Datetime: 11/25/2019 07:49 Cervical Ripening Agents: [place] Balloon; Cytotec @ Datetime: 11/25/2019 07:15 Analgesics/Sedatives: Fentanyl (mcg) @ 50 Datetime: 11/25/2019 06:15 Resting Tone IUP (mmHg): Datetime: 11/25/2019 05:46 Breath Sounds, Left: Clear and Equal Breath Sounds, Right: Clear and Equal RUQ Epigastric Pain: Denies Datetime: 11/24/2019 20:14 I/O Interventions: Up to BR Datetime: 11/24/2019 20:00 Actions for Decelerations: IV Bolus Datetime: 11/24/2019 19:35 Provider Notified (Name): AGold York, CNM Datetime: 11/24/2019 17:04 Medications: Cervical Ripening
--- NOTE | 2019-11-27 15:52 | DISCHARGE SUMMARY ---
Physician: MEAGHAN Carlson DATE OF ADMISSION: 11/24/2019 DATE OF DISCHARGE: 11/27/2019 DIAGNOSES ON ADMISSION: 1. A 34-year-old G1, P0, at 39 and 5 weeks gestation. 2. A1 gestational diabetes, well controlled. 3. Group B Streptococcus negative. 4. Pre-induction cervical ripening with misoprostol. DIAGNOSES ON DISCHARGE: 1. A 34-year-old G1, P1-0-0-1, status post spontaneous vaginal delivery on 11/25/2019. 2. Second-degree perineal laceration intact. 3. . 4. Status post MMR vaccination. 5. Normal recovery. HOSPITAL COURSE: She is a patient of [facility], who presented on 11/24/2019 for Me dical induction of labor secondary to A1 gestational diabetes. She, 24 hours prior, had received one dose of 50 mcg buccal misoprostol in an outpatient setting and following continuous monitoring x4 ho urs was discharged home with precautions. She returned 11/24/2019 for induction of labor secondary t o A1 gestational diabetes. She received 6 total doses of 50 mcg buccal misoprostol in addition to Fo zo cervical ripening balloon for effective cervical ripening. Pitocin was initiated for a max infus ion rate of 2 milliunits per mL Precipitous labor course. She progressed rapidly to spontaneously de liver a viable female infant on 11/25/2019 at 2249. Apgars were 9 and 9 at 1 and 5 minutes respectiv wil. EBL 350 mL. The patient had a second-degree perineal laceration, which was repaired using a 2- 0 Vicryl on a CT1 needle in standard fashion under sterile conditions. In addition, she was noted to have a first-degree right labial laceration, which was repaired using a 3-0 Vicryl on a CT1 needle i n standard fashion under sterile conditions. A first-degree left labial laceration was hemostatic, a nd secondarily left unrepaired. She has been doing well in her course. She is ambulating and tolerating a regular diet. She is urinating without difficulty and her lochia is normal. Her pain is well controlled with oral medications. She received an MMR vaccination secondary to rubella equivocal status on 11/26/2019. S he will be discharged home today on day #2 with instructions to continue her dora min, while in addition to continuing Tylenol and ibuprofen [id number] as needed f or pain management. It has been recommended that she continue Colace [id number] as needed for constipation. She intends to followup with myself at [facility] in 1 week for lacta tion support visit and in 3 weeks for routine visit. She has been given precautions to ca ll if she has any worsening fevers, chills, abdominal pain, increased bleeding or foul-smelling vagin al lochia. TD: 11/27/2019 08:39
== END 2019-11-27 14:15 | disposition home or self-care (01) | DRG 807 ==
LOC: WFO 07:23 → FBP 07:25 → WFO 07:48 → FBP 07:49 → OBSVTOIN 19:04
PROVIDERS: ADMIT Nurse Practitioner Obstetrics & Gynecology; ATTEND Nurse Practitioner Obstetrics & Gynecology
PROC: 10E0XZZ Delivery of Products of Conception, External Approach (ICD-10-PCS; principal; 2019-11-25)
PROC: 0KQM0ZZ Repair Perineum Muscle, Open Approach (ICD-10-PCS; 2019-11-25)
DX: O24.429 Gestational diabetes mellitus in childbirth, unspecified control (principal); Z37.0 Single live birth; O70.1 Second degree perineal laceration during delivery; O69.89X0 Labor and delivery complicated by other cord complications, not applicable or unspecified; O32.6XX0 Maternal care for compound presentation, not applicable or unspecified; Z3A.39 39 weeks gestation of pregnancy; Z87.891 Personal history of nicotine dependence
CPT/HCPCS: A9270; G0378; J7120

== ENCOUNTER 2019-12-02 08:27 | Outpatient (CLI) | payer BC ==
[2019-12-02 15:11] LABS: HGB - HEMOGLOBIN 13.2 g/dL (12.0-16.0); MEAN CORPUSCULAR HEMOGLOBIN 30.9 pg (27.0-31.0); MEAN CORPUSCULAR HGB CONC 34.3 g/dL (32.0-36.0); MEAN CORPUSCULAR VOLUME 90.2 fL (81.0-99.0); MEAN PLATELET VOLUME 10.4 fL (7.9-10.8); RED BLOOD COUNT 4.27 10^6/uL (4.20-5.40); RED CELL DISTRIBUTION WIDTH 13.1 % (12.0-15.0); WHITE BLOOD COUNT 9.2 x10^3/uL (4.8-10.8)
[2019-12-02 15:31] LABS: ALBUMIN 3.1 g/dL (3.2-5.5); BILIRUBIN,TOTAL 0.7 mg/dL (0.2-1.0); CALCIUM 8.8 mg/dL (8.5-10.3); CREATININE 0.6 mg/dL (0.4-1.0); TOTAL PROTEIN 6.3 g/dL (6.7-8.2)
[2019-12-02 15:52] LABS: CREATININE,URINE 35.2 mg/dL
[2019-12-02 15:53] LABS: TOTAL PROTEIN,URINE TIMED < 6 mg/dL
== END 2019-12-02 08:28 | disposition home or self-care (01) ==
LOC: LAB.S 08:27
PROVIDERS: ATTEND Nurse Practitioner Obstetrics & Gynecology
DX: O16.9 Unspecified maternal hypertension, unspecified trimester (principal)
CPT/HCPCS: 36415; 80053; 82570; 84156; 85027

== ENCOUNTER 2021-05-17 08:00 | Outpatient (CLI) | payer BC | END 2021-05-17 23:59 | LOC: LAB.S 08:00 | PROVIDERS: ATTEND Emergency Medicine | DX: R07.0 Pain in throat (principal) | CPT/HCPCS: 87070 ==

== ENCOUNTER 2023-05-27 15:01 | Outpatient (CLI) | payer BC ==
[2023-05-27 20:20] LABS: BASOPHILS # (AUTO) 0.1 10^3/uL (0.0-0.1); BASOPHILS % (AUTO) 1.1 %; EOSINOPHILS # (AUTO) 0.4 10^3/uL (0.0-0.7); EOSINOPHILS % (AUTO) 5.8 %; HCT - HEMATOCRIT 42.6 % (37.0-47.0); LYMPHOCYTES % (AUTO) 27.3 %; MEAN CORPUSCULAR HEMOGLOBIN 30.4 pg (27.0-31.0); MEAN CORPUSCULAR HGB CONC 35.2 g/dL (32.0-36.0); MEAN CORPUSCULAR VOLUME 86.4 fL (81.0-99.0); MEAN PLATELET VOLUME 10.3 fL (7.9-10.8); MONOCYTES # (AUTO) 0.5 10^3/uL (0.0-1.0); MONOCYTES % (AUTO) 7.3 %; NEUTROPHILS # (AUTO) 4.2 10^3/uL (1.5-6.6); NEUTROPHILS % (AUTO) 58.4 %; PLT - PLATELET COUNT 296 10^3/uL (130-450); RED BLOOD COUNT 4.93 10^6/uL (4.20-5.40); RED CELL DISTRIBUTION WIDTH 12.3 % (12.0-15.0); WHITE BLOOD COUNT 7.3 x10^3/uL (4.8-10.8)
[2023-05-27 20:30] LABS: ALBUMIN 4.4 g/dL (3.2-5.5); ALBUMIN/GLOBULIN RATIO 1.5 (1.0-2.2); ALKALINE PHOSPHATASE 49 IU/L (42-121); ALT ALANINE AMINOTRANSFERASE 18 IU/L (10-60); AST ASPARTATE AMINOTRANSFERASE 22 IU/L (10-42); BILIRUBIN,TOTAL 0.5 mg/dL (0.2-1.0); BUN - BLOOD UREA NITROGEN 17 mg/dL (6-20); CALCIUM 9.7 mg/dL (8.5-10.3); CARBON DIOXIDE - CO2 31 mmol/L (21-32); CHLORIDE 105 mmol/L (101-111); CHOL/HDL RATIO 2.8 (<4.4); CHOLESTEROL 213 mg/dL; CREATININE 0.7 mg/dL (0.6-1.3); GFR - MDRD 95 (>89); GLUCOSE 73 mg/dL (74-104); HDL CHOLESTEROL 75 mg/dL; LDL CHOLESTEROL,CALCULATED 111 mg/dL; LDL/HDL RATIO 1.5 (<4.4); SODIUM 139 mmol/L (135-145); TOTAL PROTEIN 7.3 g/dL (6.4-8.9); TRIGLYCERIDES 136 mg/dL (48-352); VLDL CHOLESTEROL 27 mg/dL
[2023-05-27 22:34] LABS: ESTIMATED AVERAGE GLUCOSE 77 mg/dL (70-100); HEMOGLOBIN A1c% 4.3 % (4.27-6.07)
== END 2023-05-27 15:02 | disposition home or self-care (01) ==
LOC: LAB.S 15:01
PROVIDERS: ATTEND Physician Assistant Medical
DX: Z13.9 Encounter for screening, unspecified (principal); Z86.32 Personal history of gestational diabetes
CPT/HCPCS: 36415; 80053; 80061; 83036; 83721; 85025